=== PATIENT | male | born 1965 | race African-American/Black ===

== ENCOUNTER 2018-03-02 06:40 | Emergency (ER) | payer SELFPAY ==
--- NOTE | 2018-03-03 13:05 | EKG ---
Test Reason : Blood Pressure : / mmHG Vent. Rate : 081 BPM Atrial Rate : 081 BPM P-R Int : 132 ms QRS Dur : 088 ms QT Int : 398 ms P-R-T Axes : 082 067 065 degrees QTc Int : 462 ms Sinus rhythm with occasional Premature ventricular complexes Possible Left atrial enlargement Left ventricular hypertrophy Nonspecific T wave abnormality Prolonged QT Abnormal ECG No changes from 07-APR-2017 Confirmed by SHEBA LANDIN ([id number]), editorial specialist PEGGY YUNG ([id number] on 03/03/2018 1:04:55 PM Referred By: Confirmed By:SHEBA LANDIN
== END 2018-03-02 08:27 | disposition home or self-care (01) ==
LOC: ERS 06:40
DX: R07.89 Other chest pain (principal); I25.10 Atherosclerotic heart disease of native coronary artery without angina pectoris; I25.2 Old myocardial infarction; J45.909 Unspecified asthma, uncomplicated; F41.9 Anxiety disorder, unspecified; F17.210 Nicotine dependence, cigarettes, uncomplicated; I10 Essential (primary) hypertension
CPT/HCPCS: 36415; 93005